=== PATIENT | female | born 1985 | race Caucasian/White ===

== ENCOUNTER 2025-03-30 08:24 | Outpatient (CLI) | payer OTHER, SELFPAY ==
--- OUTSIDE RECORDS SUMMARY | 2025-03-30 08:36 | XMS_ITS | Clinical Summary ---
Author Organization [facility] Facility Address [address] [address] Care Team Providers Care Rig Superintendent Name Role Phone Erendira Reese MD Primary Care Provider [phone] Social History Tobacco Use Types Packs/Day Years Used Date Smoking Tobacco: Never Assessed Comments Unknown Sex and Gender Information Value Date Recorded Sex Assigned at Not on file Legal Sex Female 12:44 PM EST Gender Identity Not on file Sexual Orientation Not on file Plan of Treatment Health Maintenance Due Date Last Done Comments Hepatitis B Vaccine (1 of 3 - 19+ 3-dose series) 2004 Influenza Vaccine (Season Ended) 2025 Pneumococcal Vaccine: Peds ( 0 to 5 Years) and At-Risk Patients (6 to 49 Years) Aged Out No longer eligible b ased on patient's age to complete this topic Insurance [place] Care Teams Rig Superintendent Relationship Specialty [place] [address] [place] [phone] (work) PCP - General Internal Medicine 12/13/24
--- OUTSIDE RECORDS SUMMARY | 2025-03-30 08:36 | XMS_ITS | Data Portability ---
Author Organization [place] [facility] [place] [facility], Main Office Address [address] [place] [address] Care Team Providers Care It Technician Name Role Phone ALEYDA EWING Primary Care Provider ALEYDA EWING Referring Provider Assessment Encounter Date Assessment Date Assessment LastModified by Organization Details LastModified Time 03/23/2025 03/23/2025 39-year-old joycelyn christiansen presents for evaluation of her left hand and wrist. She reports several months of sensitivity in the hand radiating from her wrist down to her fingers. She reports all her fingers are affected but the middle index fingers are the worst. She has more pain at night which interrupts her sleep. She has not had any treatments for this Besides a brace that she has been wearing, this appears to be a thumb spica brace. She denies any previous injury. she is right-hand dominant but says she uses her left hand for a lot of things. Review of systems per patient questionnaire Physical exam: She has significant sensitivity in her middle index fingers as well as radiating up into the palm and wrist. She has good range of motion with full extension flexion flexion extension of the wrist and fingers. 2+ radial pulse. She has positive Tinel's and Phalen's at the wrist. Negative Tinel's at the elbow. No ulnar nerve subluxation. negative Spurling X-rays reviewed, demonstrating no acute bony abnormality Given her significant sensitivity, I would like to obtain a EMG to assess the nerves including the possibility of carpal tunnel. Carpal tunnel syndrome may not explain the extreme hypersensitivity over her hand and wrist so we will assess if there are any other nerve issues ongoing as well. We will see her back after the scan to discuss treatment options. She is in agreement with the plan. [email or web address] Not available 03/23/2025 16:40:28 Plan of Treatment Reminders Order Date Submit Date Provider Last Modified By Organization Details Last Modified Time Details Appointments None recorded. Lab None recorded. Referral occupationa l therapist referral - please contact patient to schedule [address] Physical, Occupational & Speech Medicine & Rehab, [address] [facility], [place], [address], 09:20:11 Procedures None recorded. Surgeries None recorded. Imaging electromyog fabiola + nerve conduction study - patient to call to schedule [address] (Cardiology & Emg), [address] [facility] [address] [place] [address], [id number], 09:20:11 Medication Orders None recorded. Patient TargetsNo targets recorded. Patient InstructionsNo instructions recorded. Reason for Referral Occupational Therapist Refer ral for Carpal tunnel syndrome of left wrist please contact patient to schedule Referring Physician: Santana Flores, Orthopedic Surgery, Encounter Date: 03/23/2025 Results Created Date Observation Date Name Description Value Unit Range Abnormal Flag Note LastModifiedBy Organization Detail LastModifiedTime 03/18/2003/16/2025 XR, hand No observ ation record ed. Not Available 12/2024 10:56:57 03/18/2003/16/2025 XR, wrist , 3 or more view No observ ation record ed. Not Available 12/2024 10:56:57 03/18/2003/16/2025 XR, elbow , 3 or more view No observ ation record ed. Not Available 12/2024 10:56:57 Result Notes None recorded. Problems Name Problem SNOMED Code Status Onset Date Resolution Date Notes Provider Name and Address Organization Details Recorded Time Pain of left hand 053879606166767 Active 2024 JOSE R Pulliam [place] [facility] [facility] 15:41:21 Carpal tunnel syndrome of left wrist 856222807521980 Active 2024 ELIDIA Sheikh [facility] 15:56:42 Problem Notes None recorded. Procedures Surgical History None recorded. Imaging Results Imaging Date Name Status LastModified by Organiz ation Details LastModified Time 03/16/2025 XR, hand completed Information n ot available 03/18/2025 10:56:57 03/16/2025 XR, wrist, 3 or more view completed Information not available 03/18/2025 10:56:57 03/16/2025 XR, elbow, 3 or more view completed Information not available 03/18/2025 10:56:57 Procedure Notes None recorded. Medical Equipment None Reported. Allergies No known drug allergies Medications Name Sig Start Date Stop Date Status Note LastModified by Organization Details LastModified Time Biktarvy active Not Available Not Avai lable Not Available Vitals Date Recorded Body height Body mass index (BMI) Body weight Provider Name and Address Organization Details Last Updated DateTime 03/23/2025 160.02 cm 22.1 kg/m2 92353.05 holley Juliet Watkins CNA [place] [facility] 03/23/2025 15:38:37 Social History None recorded. Functional Status Question Answer Note LastModified by Organization D etails LastModified Time What is your level of alcohol consumption? None [email or web address] Information not available 03/23/2025 Mental Status None recorded. Family History Relationship Description Onset Age of this Age Resolved Age Notes LastModified by Organization Details LastModified Time Maternal Grandmother History of malignant neoplasm [email or web address] Not available 2024 15:39:48 Maternal Grandmother Hypertensive disorder [email or web address] Not available 2024 15:40:11 Maternal Aunt History of malignant neoplasm [email or web address] Not available 2024 15:39:48 Medical History Condition Response AIDS/HIV Y Gynecological HistoryNo gynecological history recorded. Obstetrics History GPAL:G 0 P 0 0 0 0 Past Encounters Encounter ID Performer Location Encounter Start Date Encounter Closed Date Diagnosis/Indication Diagnosis SNOMED-CT Code Diagnosis ICD10 Code Diagnosis Note [id number] Santana Flores MD [facility] [address] [place] [id number] 03/23/2025 15:21:53 03/23/2025 16:05:01 Pain of left hand [id number] 61745 M79.642 Carpal chana jeanine syndrome of left wrist [id number] [address]6944 G56.02 Health Concerns Section Related Observation LastModified by Organization Detai ls LastModified Time None Recorded Concern Status LastModified by Organization Details LastModified Time None Recorded Advance Directives Directive None Recorded Payers Encounter Date Sequence Insurance Name Policy Number Policy Cortes Covered Member ID Cortes Member ID Guarantor Name 03/23/2025 1 [facility] (MEDICAID HMO) [id number] Lucy Mckeon [id number] Lucy Mckeon OBGyn Episode No OBEpisode recorded.
--- OUTSIDE RECORDS SUMMARY | 2025-03-30 08:36 | XMS_ITS | Clinical Summary ---
Author Organization [facility] Address [address] [facility] [place] [address] Care Team Providers Care Warehouse Inventory Clerk Name Role Phone Unavailable Primary Care Provider Unavailabl e Source Comments [facility],non-owned Affiliates and Associated Physician Practices is amultiple site organization consisting of ambulatory clinics and hospital sitesin [place], [place], [place] and [place]. This disclosure is being madepursuant to the Care Everywhere program and may not contain all information available regarding this patient. Last updated 18.[facility] Allergies No known active allergies Medications * Be aware that medications may not be up to date on this document. Alwaysverify current medications with the patient. traMADol (ULTRAM) 50 MG tablet Take 50 mg by mouth every 6 hours as needed for Pain Active cyclobenzaprine (FLEXERIL) 10 MG tablet Take 10 mg by mouth 3 times daily as needed for Muscle Spasms Active diclofenac sodium EC (VOLTAREN) 50 MG tablet Take 1 Tab by mouth 2 times daily 60 Tab 11 05/24/2015 Active Family History Relation Name Status Comments Father Alive Social History Tobacco Use Types Packs/Day Years Used Date Smoking Tobacco: Never Smokeless Tobacco: Never Tobacco Cessation:Counseling Given: No Alcohol Use Standard Drinks/Week Comments No 0 (1 standard drink = 0.6 oz pur e alcohol) Comments Unknown Sex and Gender Information Value Date Recorded Sex Assigned at Not on file Legal Sex Female 5:33 AM SURGICAL ASSISTANT CERTIFIED Gender Identity Not on file Sexual Orientation Not on file Occupation Industry Job Start Date Job End Date UNEMPLOYED Not on file Not on file Not on file Last Filed Vital Signs Vital Sign Reading Time Taken Comments Blood Pressure - - Pulse - - Temperature - - Respiratory Rate - - Oxygen Saturation - - Inhaled Oxygen Concentration - - Weight 56.7 kg (125 lb) 05/24/2015 10:31 AM CDT Height 160 cm (5' 3 ) 05/24/2015 10:31 AM CDT Body Mass Index 22.14 05/24/2015 10:31 AM CDT Plan of Treatment Health Maintenance Due Date Last Done Comments HIV SCREENING 2000 HEPATITIS C SCREENING 07/05/2003 DTAP/TDAP/TD VACCINES (1 - Tdap) 2004 HEPATITIS B VACCINE (1 of 3 - 19+ 3-dose series) 2004 COVID-19 VACCINE (1 - 2023-2 5 season) 2024 DEPRESSION SCREENING 11/17/2024 INFLUENZA VACCINE (Season Ended) 2025 ZOSTER VACCINE (1 of 2) 2035 HIB VACCINE Aged Out No longer eligi ble based on patient's age to complete this topic HPV VACCINE Aged Out No longer eligi ble based on patient's age to complete this topic MENINGOCOCCAL (Group B) VACC INE SHARED DECISION-MAKING Aged Out No longer eligibl e based on patient's age to complete this topic MENINGOCOCCAL GROUPS A/C/Y/W VACCINE Aged Out No longer eligible b ased on patient's age to complete this topic PNEUMOCOCCAL VACCINE Aged Out No long er eligible based on patient's age to complete this topic [place] [address] [place] [address]
--- OUTSIDE RECORDS SUMMARY | 2025-03-30 08:37 | XMS_ITS | Clinical Summary ---
Author Organization [facility] Address [address] [place] [address] Care Team Providers Care Mercury Recoverer Name Role Phone Unavailable Primary Care Provider Unavailabl e Social History Tobacco Use Types Packs/Day Years Used Date Smoking Tobacco: Never Assessed Comments Unknown Sex and Gender Information Value Date Recorded Sex Assigned at Not on file Legal Sex Female 6:07 PM CDT Gender Identity Not on file Sexual Orientation Not on file Plan of Treatment Health Maintenance Due Date Last Done Comments Cervical Cancer Screening Pa p Smear (Age 30 to 64) Every 3 Years 1985 Annual Physical 1988 Hepatitis C 2003 DTaP, Tdap and Td Vaccines ( 1 - Tdap) 2004 Hepatitis B Vaccines (1 of 3 - 19+ 3-dose series) 2004 Cervical Cancer Screening Pa p with HPV Testing (Age 30 to 64) Every 5 Years 2015 Cervical Cancer Screening with HPV 2015 COVID-19 Vaccine (2023-2 5 season) 2024 HPV Vaccines Aged Out No longer eligi ble based on patient's age to complete this topic Meningococcal B Vaccine Aged Out No l onger eligible based on patient's age to complete this topic Meningococcal Vaccine Aged Out No shira seymour eligible based on patient's age to complete this topic Pneumococcal Vaccine: Pediat rics (0 to 5 Years) and At-Risk Patients (6 to 49 Years) Aged Out No longer eligible b ased on patient's age to complete this topic RSV Immunizations Under 20 Months Aged Out No longer eligible based on patient's age to complete this topic
--- NOTE | 2025-03-30 12:00 | NEURO_ITS ---
Impression: # Complains of left hand pain. Not diabetic. # Normal Nerve Conduction Study. # No Carpal Tunnel Syndrome or ulnar neuropathy. # Normal needle/EMG exam. Nerve Conduction Studies Anti Sensory Summary Table Stim Site NR Peak (ms) P-T Amp (µV) Site1 Site2 Delta-P (ms) Dist (cm) Lj (m/s) Left Median Anti Sensory (2-3nd Digit) Wrist 2.1 59.4 Wrist 2-3nd Digit 2.1 14.0 67 Wrist 2.4 51.3 Wrist 2-3nd Digit 2.1 14.0 67 Left Radial Anti Sensory (Base 1st Digit) Wrist 1.6 30.3 Wrist Base 1st Digit 1.6 0.0 Left Ulnar Anti Sensory (5th Digit) Wrist 2.3 42.7 Wrist 5th Digit 2.3 14.0 61 Motor Summary Table Stim Site NR Onset (ms) O-P Amp (mV) Site1 Site2 Delta-0 (ms) Dist (cm) Lj (m/s) Left Median Motor (Abd Poll Brev) Wrist 3.0 2.1 Elbow Wrist 4.2 26.0 62 Elbow 7.2 5.2 Left Ulnar Motor (Abd Dig Minimi) Wrist 2.0 5.9 A Elbow Wrist 4.4 27.0 61 A Elbow 6.4 5.4 B Elbow Wrist 3.5 21.0 60 B Elbow 5.5 1.9 F Wave Studies NR F-Lat (ms) L-R F-Lat (ms) Left Median (Mrkrs) (Abd Poll Brev) 24.53 Left Ulnar (Mrkrs) (Abd Dig Min) 25.55 EMG Side Muscle Nerve Root Ins Act Fibs Amp Dur Recrt Comment Left 1stDorInt Ulnar C8-T1 Nml Nml Nml Nml Nml Left Ext Indicis Radial (Post Int) C7-8 Nml Nml Nml Nml Nml Left Ext Digitorum Radial (Post Int) C7-8 Nml Nml Nml Nml Nml Left BrachioRad Radial C5-6 Nml Nml Nml Nml Nml Left PronatorTeres Median C6-7 Nml Nml Nml Nml Nml Left Abd Poll Brev Median C8-T1 Nml Nml Nml Nml Nml Left ABD Dig Min Ulnar C8-T1 Nml Nml Nml Nml Nml Left FlexPolLong Median (Ant Int) C7-8 Nml Nml Nml Nml Nml Left Abd Poll Long Radial (Post Int) C7-8 Nml Nml Nml Nml Nml MTDD
== END 2025-03-30 08:25 | disposition home or self-care (01) ==
PROVIDERS: PCP Internal Medicine Infectious Disease; Visit Provider Orthopaedic Surgery
DX: G56.02 Carpal tunnel syndrome, left upper limb (principal)
CPT/HCPCS: 95886; 95909

== ENCOUNTER 2025-06-29 15:44 | Emergency (ER) | payer OTHER, SELFPAY ==
--- NOTE | ~2025-06-29 | XR_ITS ---
EXAM: XR hand LT min 3V DATE: 06/29/2025 16:32 HISTORY: L hand pain . COMPARISON: None available. FINDINGS: Normal mineralization. No fracture or dislocation. No lytic or blastic lesion. Mild scatte red arthritic change. No erosion or periosteal change. Soft tissues within normal limits. IMPRESSION: No acute osseous finding in the left hand. Reviewed, dictated and finalized at location K.
--- OUTSIDE RECORDS SUMMARY | 2025-06-29 15:46 | XMS_ITS | Clinical Summary ---
Author Organization [facility] Address [address] [place] [address] Care Team Providers Care Riveting Machine Operator Automatic Name Role Phone Unavailable Primary Care Provider [...] of 3 - 19+ 3-dose series) 2004 HPV Vaccines (1 - 3-dose SCD M series) 2012 Cervical Cancer Screening Pa p with HPV Testing (Age 30 to 64) Every 5 Years 2015 Cervical Cancer Screening with HPV 2015 COVID-19 Vaccine (2023-2 5 season) 2024 Meningococcal B Vaccine Aged Out No l [...]
[2025-06-29 15:49] VITALS: BP 123/65; PULSE 80; RESP 16; TEMP 36.8; O2SAT 99
--- NOTE | 2025-06-29 16:25 | ED_ITS ---
HPI - General Adult General Chief complaint: Unspecified <Ruth Byrd APRN - Last Filed: 06/29/25 16:29> Stated complaint: L hand swelling/burning <Ruth Byrd APRN - Last Filed: 06/29/25 16:29> Time Seen by Provider: 06/29/25 16:05 <Ruth Byrd APRN - Last Filed: 06/29/25 16:29> Focused HPI: Patient is a 39-year-old female who presents to the ER with left thumb and hand pain and swelling. She reports she started experiencing numbness and tingling to her left hand ?a while ago. Patient reports she went to [facility] where they worked her up for carpal tunnel, nerve damage, and bone injury. She reports ?when they told me everything was negative I cried. Pt endorses decreased range of motion to her L wrist and hand. She reports the symptoms have moved over to her right hand now. Patient reports her left wrist and hand have ?turned colors over time. GENERAL: Well-appearing, well-nourished, and in no acute distress. HEAD: Normocephalic, atraumatic. CHEST: Clear to auscultation. ?No respiratory distress. HEART: Regular rate and rhythm.? NEURO: ?Alert and oriented x3. Patient unable to make fist with her left hand. SKIN: No identifiable edema or color changes to left hand/wrist. Pulses strong, palpable, and regular. Patient screened in triage and initial orders placed.? ?Additional care and disposition to be based upon?diagnostic testing and treatment. <Ruth Byrd APRN - Last Filed: 06/29/25 16:29> History of Present Illness HPI narrative: Agree with HPI <Adryan Lim MD - Last Filed: 06/29/25 22:13> Related Data Allergies/adverse reactions: Allergies Allergy/AdvReac Type Severity Reaction Status Date / Time No Known Allergies Allergy Unverified 06/29/25 15:51 <Ruth Byrd APRN - Last Filed: 06/29/25 16:29> Course Vital Signs Vital signs: Vital Signs Temperature 98.2 F 06/29/25 15:49 Pulse Rate 80 06/29/25 15:49 Respiratory Rate 16 06/29/25 15:49 Blood Pressure 123/65 06/29/25 15:49 Pulse Oximetry 99 06/29/25 15:49 Temperature 98.2 F 06/29/25 15:49 Pulse Rate 85 06/29/25 20:48 Respiratory Rate 14 06/29/25 20:48 Blood Pressure 116/83 06/29/25 20:48 Pulse Oximetry 100 06/29/25 20:48 <Ruth Byrd APRN - Last Filed: 06/29/25 16:29> Vital Signs Temperature 98.2 F 06/29/25 15:49 Pulse Rate 80 06/29/25 15:49 Respiratory Rate 16 06/29/25 15:49 Blood Pressure 123/65 06/29/25 15:49 Pulse Oximetry 99 06/29/25 15:49 Temperature 98.2 F 06/29/25 15:49 Pulse Rate 85 06/29/25 20:48 Respiratory Rate 14 06/29/25 20:48 Blood Pressure 116/83 06/29/25 20:48 Pulse Oximetry 100 06/29/25 20:48 <Adryan Lim MD - Last Filed: 06/29/25 22:13> Medical Decision Making MDM Narrative Medical decision making narrative: 49-year-old female presents to the ED left wrist/thumb pain. X-ray showed no acute fractures. She did have significant pain with minimal palpation over the thumb and index finger. She did have reproducible shooting sensation with palpation over the left ulnar tunnel. Difficult to assess the carpal tunnel she has already had extensive testing related to this. Given the location of her pa in, this is likely consistent with a proximal median neuropathy. She will be given prednisone for this. She was advised to continue follow with the hand specialist for further evaluation. Patient was agreeable as planned. Given strict return precautions. <Adryan Lim MD - Last Filed: 06/29/25 22:13> Vital Signs Vital Signs: Vital Signs Temperature 98.2 F 06/29/25 15:49 Pulse Rate 80 06/29/25 15:49 Respiratory Rate 16 06/29/25 15:49 Blood Pressure 123/65 06/29/25 15:49 Pulse Oximetry 99 06/29/25 15:49 Temperature 98.2 F 06/29/25 15:49 Pulse Rate 85 06/29/25 20:48 Respiratory Rate 14 06/29/25 20:48 Blood Pressure 116/83 06/29/25 20:48 Pulse Oximetry 100 06/29/25 20:48 <Ruth Byrd APRN - Last Filed: 06/29/25 16:29> Vital Signs Temperature 98.2 F 06/29/25 15:49 Pulse Rate 80 06/29/25 15:49 Respiratory Rate 16 06/29/25 15:49 Blood Pressure 123/65 06/29/25 15:49 Pulse Oximetry 99 06/29/25 15:49 Temperature 98.2 F 06/29/25 15:49 Pulse Rate 85 06/29/25 20:48 Respiratory Rate 14 06/29/25 20:48 Blood Pressure 116/83 06/29/25 20:48 Pulse Oximetry 100 06/29/25 20:48 <Adryan Lim MD - Last Filed: 06/29/25 22:13> Discharge Plan 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 Take tylenol and ibuprofen for pain. <Ruth Byrd APRN - Last Filed: 06/29/25 16:29> Patient Language: Belarusian <Ruth Byrd APRN - Last Filed: 06/29/25 16:29> Prescriptions: New prednisone 20 mg tablet 20 mg PO DAILY Qty: 7 0RF <Ruth Byrd APRN - Last Filed: 06/29/25 16:29> Follow-up/Referrals: Hugh,Karissa Krishna [Primary Care Provider] - <Ruth Byrd APRN - Last Filed: 06/29/25 16:29> Stand Alone Forms: Work/School Release IP <Ruth Byrd APRN - Last Filed: 06/29/25 16:29>
--- OUTSIDE RECORDS SUMMARY | 2025-06-29 19:46 | XMS_ITS | Clinical Summary ---
Author Organization [facility] Address [address] [place] [address] Care Team Providers Care Fruit Packer Name Role Phone Unavailable Primary Care Provider [...]
[2025-06-29 20:29] VITALS: RESP 19
[2025-06-29 20:47] VITALS: BP 116/83; PULSE 85; RESP 14; O2SAT 100
[2025-06-29 20:48] VITALS: BP 116/83; PULSE 85; RESP 14; O2SAT 100
== END 2025-06-29 20:51 | disposition home or self-care (01) ==
PROVIDERS: Emergency Provider Student in an Organized Health Care Education/Training Program; PCP Internal Medicine Infectious Disease
DX: G56.12 Other lesions of median nerve, left upper limb (principal)
CPT/HCPCS: 73130; 99283; J7512

== ENCOUNTER 2025-11-06 12:54 | Outpatient (CLI) | payer OTHER, SELFPAY ==
--- NOTE | ~2025-11-06 | MR_ITS ---
EXAMINATION: MR cervical spine wo con DATE: 11/06/2025 13:39 INDICATION: Cervical radiculopathy. TECHNIQUE: Magnetic resonance imaging (MRI) of the cervical spine was performed without intravenous contrast. COMPARISON: None FINDINGS: There is mild kyphosis of cervical spine. Vertebral body heights are normal. There is mildly decreased disc height at C4-C5, moderately decreased disc height at C5-C6, and mildly decreased disc height at C6-C7. There is increased T2-weighted signal intensity in the spinal cord at C5-C6 and C6-C7, consistent with myelomalacia. The following disc levels are specifically discussed: C2-C3: There is a central protrusion. There is mild left uncovertebral joint osteoarthritis. There is moderate bilateral facet joint osteoarthritis. There is mild bilateral neural foraminal stenosis. There is mild central canal stenosis. C3-C4: The disc does not extend beyond the endplate margin. There is moderate bilateral uncovertebral joint osteoarthritis. There is severe right and moderate left facet joint osteoarthritis. There is moderate bilateral neural foraminal stenosis. There is no central canal stenosis. C4-C5: There is a central extrusion. There is severe right and moderate left uncovertebral joint osteoarthritis. There is moderate bilateral facet joint osteoarthritis. There is moderate bilateral neural foraminal stenosis. There is severe central canal stenosis with ventral and dorsal indentation of the spinal cord. C5-C6: The disc is bulging with superimposed central extrusion. There is severe bilateral uncovertebral joint osteoarthritis. There is mild bilateral facet joint osteoarthritis. There is moderate right and mild left neural foraminal stenosis. There is severe central canal stenosis with ventral and dorsal indentation of the spinal cord. C6-C7: There is a right central extrusion. There is moderate bilateral uncovertebral joint osteoarthritis. There is moderate right and severe left facet joint osteoarthritis. There is mild right and moderate left neural foraminal stenosis. There is severe central canal stenosis with ventral and dorsal indentation of the spinal cord. C7-T1: The disc does not extend beyond the endplate margin. There is no uncovertebral joint osteoarthritis. There is moderate right and severe left facet joint osteoarthritis. There is mild left neural foraminal stenosis. There is no central canal stenosis. IMPRESSION: 1. Severe cervical spondylosis. 2. Myelomalacia at C5-C6 and C6-C7. Reviewed, dictated and finalized at location E. CASHIER
--- OUTSIDE RECORDS SUMMARY | 2025-11-06 12:57 | XMS_ITS | Clinical Summary ---
Author Organization [facility] Address [address] [place] [address] Care Team Providers Care Freight Sales Broker Name Role Phone Unavailable Primary Care Provider [...] 2015 Cervical Cancer Screening with HPV 2015 Mammogram Screening 2025 COVID-19 Vaccine ( - 2024-2 6 season) 2025 Influenza Adult (#1) 2025 Hepatitis A Vaccines Aged Out No long er eligible based [...]
--- OUTSIDE RECORDS SUMMARY | 2025-11-06 12:57 | XMS_ITS | Clinical Summary ---
Author Organization [facility] Address [address] [facility] [place] [address] Care Team Providers Care School Physical Therapist Name Role Phone Unavailable Primary Care Provider Unavailabl e Source Comments [facility],non-owned Affiliates and Associated Physician Practices is amultiple site organization consisting of ambulatory clinics and hospital sitesin [place], [place], [place] and [place]. This disclosure is being madepursuant to the Care Everywhere program and may not contain all information available regarding this patient. 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
--- OUTSIDE RECORDS SUMMARY | 2025-11-06 12:57 | XMS_ITS | Clinical Summary ---
Author Organization [facility] Address [address] [address] Care Team Providers Care Pharmacy Retail Support Specialist Name Role Phone Erendira Reese MD Primary Care Provider [phone] Social History Tobacco Use Types Packs/Day Years [...] - 19+ 3-dose series) 2004 Influenza Vaccine (#1) 2025 Pneumococcal Vaccine: Peds ( 0 to 5 Years) and At-Risk Patients (6 to 49 Years) Aged Out No longer eligible b ased on patient's age to complete this topic Insurance [place] [employer] Care Teams Pharmacy Retail Support Specialist Relationship Specialty Start [place] [address] [place] [phone] (work) PCP - General Internal Medicine 12/13/24
--- OUTSIDE RECORDS SUMMARY | 2025-11-06 12:57 | XMS_ITS | Data Portability ---
Author Organization [place] [facility], Main Office Address [address] [place] [address] Care Team Providers Care Media Relations Director Name Role Phone ALEYDA EWING Primary Care [...] She is in agreement with the plan. Not available 03/23/2025 16:40:28 04/13/2025 04/13/2025 39-year-old joycelyn christiansen presents for follow-up of her left hand. She reports persistent numbness and tingling an extreme sensitivity over her forearm, wrist, and hand. We got an EMG and she is here to review that. She reports 10/10 pain. It is getting to the point were wearing the brace that we gave her hurts. She has hypersensitivity throughout her hand and distal forearm. EMG was reviewed, demonstrating a normal exam We reviewed her EMG results and discussed there is no nerve entrapment that we would do surgery or any other type of treatment for. She may be developing some CRPS type symptoms. We will send her to pain management to hopefully find some modalities that will be helpful for this. In the meantime, we will try giving her some gabapentin to try to calm this down. We can see her back as needed after she has gotten the pain management referral. She is in agreement with the plan. Not available 04/13/2025 16:14:51 Plan of Treatment Reminders Order Date Submit Date Provider Last Modified By Organization Details Last Modified Time Details Appointments None recorded. Lab None recorded. Referral pain management referral - Please schedule pt for L hand 2024 025 [facility], [address], [place], [address], 17:20:44 occupation al therapist referral - please contact patient to schedule 2024 025 [email or web address] [facility], [address] [place], [address], 09:20:11 Procedures None recorded. Surgeries None recorded. Imaging electromyo gram + nerve conduction study - patient to call to schedule 2024 025 [facility] (Cardiology & Em[facility]), [address] [facility] [address] [place] [address], [phone], 11:07:25 Medication Orders gabapentin 100 mg capsule 2024 025 [email or web address] [id number], [address] [place], [place], [phone], 16:25:57 Patient TargetsNo targets recorded. Patient InstructionsNo instructions recorded. Reason for Referral Occupational Therapist Refer ral for Carpal tunnel syndrome of left wrist please contact patient to schedule Referring Physician: Santana Flores, Orthopedic Surgery, Encounter Date: 03/23/2025 Pain Management Referral for Carpal tunnel syndrome of left wrist Please schedule pt for L hand Referring Physician: Santana Flores, Orthopedic Surgery, Encounter Date: 04/13/2025 Results Created Date Observation Date Name Description Value Unit Range Abnormal Flag Note LastModifiedBy Organization Detail LastModifiedTime 03/18/20 25 03/16/2025 XR, hand No observ ation record ed. Not Available 12/2024 10:56:57 03/18/20 25 03/16/2025 XR, wrist , 3 or more view No observ ation record ed. Not Available 12/2024 10:56:57 03/18/20 25 03/16/2025 XR, elbow , 3 or more view No observ ation record ed. Not Available 12/2024 10:56:57 04/07/20 25 03/30/2025 elect romyo gram + nerve condu ction study No observ ation record ed. [email or web address] (Cardiology [facility] Em[facility]) [address] [place], [place] [address] [address] [place] [address], [phone], 04/07/2025 11:07:25 Result Notes None recorded. Problems Name Problem SNOMED Code Status Onset Date Resolution Date Notes Provider Name and Address Organization Details Recorded Time Pain of left hand 904960376202674 Active 2024 JOSE R Pulliam, [facility] [employer] [facility] 15:41:21 Carpal tunnel syndrome of left wrist 099581467992292 Active 2024 Deepthi jerez [facility] [employer] [facility] 15:56:42 Problem Notes None recorded. Medical Equipment None Reported. Allergies No known drug allergies Medications Name Sig Start Date Stop Date Status Note LastModified by Organization Details LastModified Time gabapentin 100 mg capsule Take 1 capsule 3 times a day by oral route. 025 active Not Available Not Available Not Avai lable [employer] active Not Available Not Avai lable Not Available Vitals Date Recorded Body height Body mass index (BMI) Body weight Provider Name and Address Organization Details Last Updated DateTime 03/23/2025 160.02 cm 22.1 kg/m2 12299.05 g Julietjosefina Wtakins [facility] [employer] [facility] 03/23/2025 15:38:37 Date Recorded Body height Body mass index (BMI) Body weight Pain severity - 0-10 verbal numeric rating [Score] - Reported Provider Name and Address Organization Details Last Updated DateTime 04/13/2025 160.02 cm 22.1 kg/m2 08180.05 g 10 Rhona Krishnan Keena [facility] [employer] [facility] 04/13/2025 14:59:52 Social History None recorded. Functional Status Question [...] Diagnosis SNOMED-CT Code Diagnosis ICD10 Code Diagnosis IMO Codes Diagnosis Note [id number] Santana Flores MD [facility] [address] [place] [address] 03/23/2025 15:21:53 03/23/2025 16:05:01 Pain of left hand 8614597387 39968 M79.492 [id number] Carpal chana jeanine syndrome of left wrist [id number] 40789 G56.02 [id number] Santana Flores MD [facility] [address] [place] [address] 04/13/2025 14:58:46 04/13/2025 15:14:35 Carpal tunnel syndrome of left wrist 0807759347 35246 G56.02 333486 Pain of left hand 537948 7285 54570 M79.913 [id number] Health Concerns Section Related Observation LastModified by Organization Detai ls LastModified Time None Recorded Concern Status LastModified by Organization Details LastModified Time None Recorded Advance Directives Directive None Recorded Payers Insurance Date Sequence Insurance Name Policy Number Policy Cortes Covered Member ID Cortes Member ID Guarantor Name 09/08/2025 1 [facility] (MEDICAID HMO) [id number] Lucy Mckeon [id number] Lucy Mckeon OBGyn Episode No OBEpisode recorded.
== END 2025-11-06 12:55 | disposition home or self-care (01) ==
PROVIDERS: PCP Internal Medicine Infectious Disease; Visit Provider Internal Medicine Infectious Disease
DX: M47.812 Spondylosis without myelopathy or radiculopathy, cervical region (principal); M50.023 Cervical disc disorder at C6-C7 level with myelopathy
CPT/HCPCS: 72141